=== PATIENT | female | born 1955 | race Caucasian/White ===

== ENCOUNTER 2019-01-20 03:48 | Emergency (ER) | payer MEDICARE, SELFPAY ==
[2019-01-20 03:49] VITALS: BP 139/76; PULSE 62; RESP 18; TEMP 36.6; O2SAT 99; BMI 32.3
--- NOTE | 2019-01-20 04:04 | CT_ITS ---
HISTORY: TRIPPED AND FELL, HIT HEAD ON FLOOR EXAMINATION: CT Head or Brain W/O Contrast TECHNIQUE: Multiple axial images were obtained of the brain without intravenous contrast. A radiation dose optimization technique was used for this scan. IV Contrast dosage and agent: None. COMPARISON: None FINDINGS: Right cerebral atrophy with ex vacuo dilatation of the right lateral ventricle. This may be developmental in origin. The left lateral ventricle, third ventricle, and fourth ventricle are normal in size. No hydrocephalus. No intracranial mass, hemorrhage, or acute parenchymal abnormality. Posterior fossa structures are unremarkable. No suspicious extra-axial fluid collection. As visualized, and the mastoids appear clear. Asymmetric enlargement of the right frontal sinus compatible with developmental change. The paranasal sinuses appear clear. Generalized calvarial thickening, nonspecific, and this may be seen with anticonvulsant Dilantin therapy. No calvarial fracture seen. CT/Brain/Head without Contrast IMPRESSION: 1. Negative for intracranial hemorrhage or acute parenchymal abnormality. 2. Extensive chronic changes, as above. 3. No calvarial fracture seen. Individualized dose optimization techniques were used for this CT. at 0441 Reported and signed by: Oscar Steel MD Electronically Signed: Oscar Steel, at 4:40 EDT Tel , Service support ,
--- NOTE | 2019-01-20 04:58 | ED.VISSUMM ---
- ER Visit Summary Date of Service: 01/20/19 Chief Complaint: Fall History of Present Illness: The patient is a 63 F who presents after a fall. She was a visitor for a patient here. She stood up to leave. She tripped over her shoe. Her she was falling apart and she had ducked taped it back together but part of it caught on the floor causing her to trip and fall forward striking her head on the floor. No loss of consciousness. No amnesia. She has not vomited. She is not anticoagulated. Physical Examination: Afebrile vitals normal GCS of 15 with no focal or lateralizing neurological deficits Heart regular rate and rhythm Lungs are clear Abdomen soft Active full range of motion x4 Test Results: CT head shows no intracranial hemorrhage, no fracture Emergency Department Course and Treatment: Imaging as above negative. Patient advised on signs and symptoms to monitor for and she was discharged home. She understands to return for new or worsening symptoms. Treatment Plan: [] Disposition: Discharge Impression: Closed head injury This note was generated with [employer] dictation software. It may contain incorrect words, spelling, and punctuation that were not noted in review of the chart prior to signing ED Disposition - Plan for ED Patient: Referrals: Care Physician,No Primary [Primary Care Provider] -
--- NOTE | 2019-01-20 05:00 | ED.DEP ---
ED Disposition - Plan for ED Patient: Instructions: FALL, Mechanical, HEAD INJURY, No Wake-Up (Adult) Referrals: Care Physician,No Primary [Primary Care Provider] -
== END 2019-01-20 05:26 | disposition home or self-care (01) ==
PROVIDERS: Emergency Provider Emergency Medicine
DX: S09.90XA Unspecified injury of head, initial encounter (principal); R40.2410 Glasgow coma scale score 13-15, unspecified time; W18.09XA Striking against other object with subsequent fall, initial encounter; Y93.9 Activity, unspecified; Y92.9 Unspecified place or not applicable
CPT/HCPCS: 70450; 99282